=== PATIENT | female | born 1960 | race African-American/Black ===

== ENCOUNTER 2016-09-27 14:29 | Emergency (ER) | payer OTHER ==
[2016-09-27 14:35] VITALS: BP 133/79
[2016-09-27] MEDS ORDERED: DIAZEPAM 5 MG TABLET PO ONE (15:45)
[2016-09-27] MEDS ORDERED: HYDROCODONE/ACETAMINOPHEN 5-325 MG TABLET PO ONE (15:45)
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
== END 2016-09-27 17:37 | disposition home or self-care (01) ==
LOC: ER 14:29
DX: S16.1XXA Strain of muscle, fascia and tendon at neck level, initial encounter (principal); V43.52XA Car driver injured in collision with other type car in traffic accident, initial encounter; Y92.410 Unspecified street and highway as the place of occurrence of the external cause; R07.81 Pleurodynia; F17.200 Nicotine dependence, unspecified, uncomplicated
CPT/HCPCS: 72050; 99284

== ENCOUNTER 2017-04-08 14:41 | Emergency (ER) | payer OTHER ==
--- NOTE | 2017-04-08 15:25 | ER Document Report ---
ED Medical Screen (RME) - General Chief Complaint: Headache Stated Complaint: HEADACHE X3 DAYS Time Seen by Provider: 04/08/17 15:23 Mode of Arrival: Ambulatory Information source: Patient TRAVEL OUTSIDE OF THE [place] IN LAST 30 DAYS: No - HPI Patient complains to provider of: severe KIMBLE Onset: Other - pt with c/o severe KIMBLE -- thinks it's due to her taking MTX dose too close together - Related Data Allergies/Adverse Reactions: No Known Allergies Allergy (Verified 04/08/17 14:43) Past Medical History - Past Medical History Cardiac Medical History: Reports: Hx Hypertension Renal/ Medical History: Denies: Hx Peritoneal Dialysis Musculoskeltal Medical History: Reports Hx Arthritis Psychiatric Medical History: Reports: Hx Depression Past Surgical History: Reports: Hx Tubal Ligation Physical Exam - Vital signs Vitals: Temp Pulse Resp BP Pulse Ox 100.4 F 87 19 146/87 H 94 04/08/17 14:56 04/08/17 14:56 04/08/17 14:56 04/08/17 14:56 04/08/17 14:56 Course - Vital Signs Vital signs: Temp Pulse Resp BP Pulse Ox 100.4 F 87 19 146/87 H 94 04/08/17 14:56 04/08/17 14:56 04/08/17 14:56 04/08/17 14:56 04/08/17 14:56
[2017-04-08 15:52] LABS: ABSOLUTE LYMPHOCYTES (AUTO) 1.4 10^3/uL (0.5-4.7); ABSOLUTE MONOCYTES (AUTO) 0.7 10^3/uL (0.1-1.4); ABSOLUTE NEUT (AUTO) 2.4 10^3/uL (1.7-8.2); BASOPHILS % (AUTO) 1.1 % (0-2); EOSINOPHILS % (AUTO) 0.2 % (0-6); HEMATOCRIT 42.1 % (36.0-47.0); HEMOGLOBIN 14.4 g/dL (12.0-15.5); LYMPHOCYTES % (AUTO) 30.9 % (13-45); MEAN CORPUSCULAR HEMOGLOBIN 30.8 pg (27.0-33.4); MEAN CORPUSCULAR HGB CONC 34.1 g/dL (32.0-36.0); MEAN CORPUSCULAR VOLUME 90 fl (80-97); MONOCYTES % (AUTO) 14.8 % (3-13); PLATELET COUNT 248 10^3/uL (150-450); RED BLOOD COUNT 4.67 10^6/uL (3.72-5.28); RED CELL DISTRIBUTION WIDTH 13.6 % (11.5-14.0); TOTAL CELLS COUNTED % (AUTO) 100 %; WHITE BLOOD COUNT 4.5 10^3/uL (4.0-10.5)
[2017-04-08 15:54] LABS: APPEARANCE,URINE SLIGHTLY-CLOUDY; BILIRUBIN,URINE NEGATIVE (NEGATIVE); COLOR,URINE YELLOW; GLUCOSE, URINE NEGATIVE (NEGATIVE); KETONES,URINE NEGATIVE (NEGATIVE); LEUKOCYTE ESTERASE,URINE NEGATIVE (NEGATIVE); NITRITE,URINE NEGATIVE (NEGATIVE); PROTEIN,URINE NEGATIVE (NEGATIVE); URINE SPECIFIC GRAVITY 1.018; UROBILINOGEN,URINE NEGATIVE mg/dL (<2.0)
--- NOTE | 2017-04-08 15:56 | RADIOLOGY REPORT (SQ) ---
EXAM DESCRIPTION: CT HEAD WITHOUT COMPLETED DATE/TIME: 04/08/2017 3:42 pm REASON FOR STUDY: KIMBLE COMPARISON: None. TECHNIQUE: Axial images acquired through the brain without intravenous contrast. Images reviewed wi th bone, brain and subdural windows. Images stored on PACS. All CT scanners at this facility use dose modulation, iterative reconstruction, and/or weight based d osing when appropriate to reduce radiation dose to as low as reasonably achievable (ALARA). [facility]: Dose Right [facility]: CareDose [facility]: Dose Right [facility]: Teradose 4D [facility]: MI Airline RADIATION DOSE: CT Rad equipment meets quality standard of care and radiation dose reduction techniq ues were employed. CTDIvol: 64.6 mGy. DLP: 1034 mGy-cm. mGy. LIMITATIONS: None. FINDINGS: VENTRICLES: Normal size and contour. CEREBRUM: No masses. No hemorrhage. No midline shift. No evidence for acute infarction. Normal gra y/white matter differentiation. No areas of low density in the white matter. CEREBELLUM: No masses. No hemorrhage. No alteration of density. No evidence for acute infarction. EXTRAAXIAL SPACES: No fluid collections. No masses. ORBITS AND GLOBE: No intra- or extraconal masses. Normal contour of globe without masses. CALVARIUM: No fracture. PARANASAL SINUSES: No fluid or mucosal thickening. SOFT TISSUES: No mass or hematoma. OTHER: No other significant finding. IMPRESSION: NORMAL BRAIN CT WITHOUT CONTRAST. EVIDENCE OF ACUTE STROKE: NO. COMMENT: Quality ID # [id number]: Final reports with documentation of one or more dose reduction techniques (e.g., Automated exposure control, adjustment of the mA and/or kV according to patient size, use of iterative reconstruction technique) TECHNICAL DOCUMENTATION: JOB ID: [id number] [employer]- All Rights Reserved
[2017-04-08 16:16] LABS: ALANINE AMINOTRANSFERASE 23 U/L (9-52); ALBUMIN 4.8 g/dL (3.5-5.0); ALKALINE PHOSPHATASE 64 U/L (38-126); ANION GAP 11 (5-19); ASPARTATE AMINO TRANSFERASE 23 U/L (14-36); BILIRUBIN,DIRECT 0.2 mg/dL (0.0-0.4); BILIRUBIN,TOTAL 0.4 mg/dL (0.2-1.3); BLOOD UREA NITROGEN 10 mg/dL (7-20); CALCIUM 10.4 mg/dL (8.4-10.2); CARBON DIOXIDE 28 mmol/L (22-30); CHLORIDE 102 mmol/L (98-107); GLUCOSE 99 mg/dL (75-110); POTASSIUM 4.7 mmol/L (3.6-5.0); SODIUM 141.4 mmol/L (137-145); TOTAL PROTEIN 7.5 g/dL (6.3-8.2)
[2017-04-08] MEDS ORDERED: IBUPROFEN 600 MG TABLET PO ONE (18:09)
[2017-04-08] MEDS ORDERED: ONDANSETRON 4 MG TAB.RAPDIS PO ONE (18:09)
--- NOTE | 2017-04-08 18:22 | ER Document Report ---
ED General - General Chief Complaint: Headache Stated Complaint: HEADACHE X3 DAYS Time Seen by Provider: 04/08/17 15:23 Mode of Arrival: Ambulatory Notes: 57-year-old female presents with 3 days of gradual onset headache holocephalic without neck stiffness or photophobia. "I think it is trickling down the flu" although there is no fever or body aches. No sore throat or respiratory symptoms. Intermittent pleuritic chest pain. Decreased oral intake with nausea and diarrhea. No ill contacts antibiotics or foreign travel. TRAVEL OUTSIDE OF THE [place] IN LAST 30 DAYS: No - Related Data Allergies/Adverse Reactions: No Known Allergies Allergy (Verified 04/08/17 14:43) Past Medical History - General Information source: Patient - Social History Smoking Status: Current Every Day Smoker Chew tobacco use (# tins/day): No Smoking Education Provided: Yes - The patient ED visit today was directly related to their abuse of tobacco. Frequency of alcohol use: Rare Drug Abuse: None Family History: Reviewed & Not Pertinent Patient has suicidal ideation: No Patient has homicidal ideation: No - Past Medical History Cardiac Medical History: Reports: Hx Hypertension Renal/ Medical History: Denies: Hx Peritoneal Dialysis Musculoskeltal Medical History: Reports Hx Arthritis Psychiatric Medical History: Reports: Hx Depression Past Surgical History: Reports: Hx Tubal Ligation Review of Systems - Review of Systems Notes: REVIEW OF SYSTEMS GEN: Has no fever or chills ENT: Denies sore throat, nasal discharge, ear pain EYES: Denies blurry vision, eye pain, discharge CV: Denies chest pain, palpitations, edema RESP: Denies cough, shortness of breath, wheezing GI: Denies abdominal pain, nausea, vomiting, diarrhea MSK: Denies joint pain/swelling, edema, SKIN: Denies rash, skin lesions LYMPH: Denies swollen glands/lymph nodes NEURO: Denies headache, focal weakness or numbness, dizziness PSYCH: Denies depression, suicidal or homicidal ideation PHYSICAL EXAMINATION General: No acute distress, well-nourished Head: Atraumatic, normocephalic ENT: Mouth normal, oropharynx moist, no exudates or tonsillar enlargement Eyes: Conjunctiva normal, pupils equal, lids normal Neck: No JVD, supple, no guarding CVS: Normal rate, regular rhythm, no murmurs Resp: No resp distress, equal and normal breath sounds bilaterally GI: Nondistended, soft, no tenderness to palpation, no rebound or guarding Ext: No deformities, no edema, normal range of motion in upper and lower ext Back: No CVA or midline TTP Skin: No rash, warm Lymphatic: No lymphadeopathy noted Neuro: Awake, alert. Face symmetric. GCS 15. Physical Exam - Vital signs Vitals: Temp Pulse Resp BP Pulse Ox 100.4 F 87 19 146/87 H 94 04/08/17 14:56 04/08/17 14:56 04/08/17 14:56 04/08/17 14:56 04/08/17 14:56 Course - Re-evaluation Re-evalutation: 04/08/17 18:22 3 days of mild headache without signs of meningitis on exam, or fever, has some nausea and diarrhea and is likely mildly dehydrated but abdominal exam is benign. Flu is a possibility. She has a borderline temperature elevation here 100.4. Will treat with Zofran and Motrin and Tamiflu empirically, patient to be discharged home to follow-up with primary care. I have discussed with the patient there likely diagnosis, aftercare plan, follow -up plans and my usual and customary return precautions. They verbalized understanding of this. 04/08/17 18:23 - Vital Signs Vital signs: Temp Pulse Resp BP Pulse Ox 100.4 F 87 19 146/87 H 94 04/08/17 14:56 04/08/17 14:56 04/08/17 14:56 04/08/17 14:56 04/08/17 14:56 - Laboratory Result Diagrams: 04/08/17 15:35 04/08/17 15:35 Laboratory results interpreted by me: 04/08/17 04/08/17 04/08/17 15:25 15:35 15:35 Monocytes % 14.8 H Est GFR (Non-Af Amer) 50 L Calcium 10.4 H Urine Blood MODERATE H Discharge - Discharge Clinical Impression: Vomiting and diarrhea Condition: Good Disposition: HOME, SELF-CARE Prescriptions: Ondansetron [Zofran Odt 4 mg Tablet] 1 - 2 tab PO Q4H PRN #15 tab.rapdis PRN Reason: For Nausea/Vomiting Oseltamivir Phosphate [Tamiflu] 75 mg PO BID #10 capsule
[2017-04-08 18:31] VITALS: BP 147/88
== END 2017-04-08 18:49 | disposition home or self-care (01) ==
LOC: ER 14:41
DX: R11.2 Nausea with vomiting, unspecified (principal); R19.7 Diarrhea, unspecified; R51 Headache; R07.81 Pleurodynia; F17.200 Nicotine dependence, unspecified, uncomplicated; I10 Essential (primary) hypertension
CPT/HCPCS: 99284; 36415; 85025; 80053; 81001; 70450; S0119

== ENCOUNTER → 2018-04-24 | Outpatient (CLI) | payer OTHER | LOC: WI 14:09 | PROVIDERS: ATTEND Specialist | DX: Z12.31 Encounter for screening mammogram for malignant neoplasm of breast (principal) | CPT/HCPCS: 77067 ==